=== PATIENT | male | born 1965 | race Caucasian/White ===

== ENCOUNTER 2021-10-24 16:36 | Emergency (ER) | payer BC ==
[~2021-10-24] VITALS: Ht 177.8 cm; Wt 97.5 kg
== END 2021-10-24 19:55 | disposition home or self-care (01) ==
LOC: ER1 16:36
DX: U07.1 COVID-19 (principal); Z23 Encounter for immunization; E78.5 Hyperlipidemia, unspecified
CPT/HCPCS: 99283; M0243